=== PATIENT | male | born 1950 | race Caucasian/White ===

== ENCOUNTER 2016-07-16 10:20 | Inpatient (IN) ==
[2016-07-16] MEDS ORDERED: Ipratropium/Albuterol Neb 3 ML IH ONE (10:30)
[2016-07-16] MEDS ORDERED: methylPREDNISolone 125 MG/2 ML VIAL IVP ONE (10:30)
--- NOTE | 2016-07-16 10:41 | Emergency Department Note ---
Disposition Clinical Impression: Pneumonia Disposition: Admitted As Inpatient Condition: Fair SOB HPI - General Chief Complaint: ED Shortness of Breath/Dyspnea Stated Complaint: JESSCIA/Pneumonia Time Seen by Provider: 07/16/16 10:24 Source: patient, EMS Limitations: no limitations Nursing Notes Reviewed: Yes Vital Signs Reviewed: Yes - Related Data Home Medications Medication Instructions Recorded Confirmed Albuterol Neb [Proventil Neb] 2.5 mg IH QID 02/20/15 07/16/16 Aspirin Enteric Coated [Aspirin EC] 81 mg PO DAILY 02/20/15 07/16/16 Atorvastatin Calcium [Lipitor] 20 mg PO DAILY 02/20/15 07/16/16 Diltiazem HCl [Cardizem] 120 mg PO DAILY 02/20/15 07/16/16 Escitalopram [Lexapro] 20 mg PO DAILY 02/20/15 07/16/16 Furosemide [Lasix] 40 mg PO DAILY 02/20/15 07/16/16 Nitroglycerin 0.4 mg SL PRN PRN 02/20/15 07/16/16 Oxygen 3 l NS CONT 02/20/15 07/16/16 Potassium Chloride 20 meq PO BID 02/20/15 07/16/16 Tiotropium [Spiriva] 18 mcg IH DAILY 02/20/15 07/16/16 Ascorbic Acid [Vitamin C] 2,000 mg PO DAILY 03/31/16 07/16/16 Echinacea 250 mg PO 5XW 03/31/16 07/16/16 Multivitamin [Multi-Day Vitamins] 1 tab PO DAILY 06/17/16 07/16/16 Acetaminophen [Acetaminophen ER] 650 mg PO QID PRN 07/13/16 07/16/16 Ondansetron HCl [Zofran] 4 mg PO Q4H PRN 07/13/16 07/16/16 Budesonide/Formoterol 160/4.5 2 puff IH BID 07/16/16 07/16/16 [Symbicort 160/4.5] GuaiFENesin Liq [Robitussin Liq] 200 mg PO DAILY 07/16/16 07/16/16 Ipratropium/Albuterol Neb [Duoneb] 3 ml IH Q6HR 07/16/16 07/16/16 Lactose-Reduced Food [Ensure 1 bottle PO TID 07/16/16 07/16/16 Original] Allergies Allergy/AdvReac Type Severity Reaction Status Date / Time cisplatin AdvReac Severe neurological Verified 03/31/16 13:41 changes Past Medical History - Past Medical History Medical history: Reports: cancer, COPD, coronary artery disease, hyperlipidemia , hypertension Surgical history: Reports: herniorrhaphy Psychiatric history: Reports: depression - Social History Smoking Status: Former smoker Smokeless Tobacco Status: No Alcohol use: Reports: none Drug use: Reports: none Physical Exam - General Limitations: no limitations General appearance: alert, in no apparent distress Course Vital Signs Temperature 98.7 F 07/16/16 10:23 Pulse Rate 95 07/16/16 10:23 Respiratory Rate 22 07/16/16 10:23 Blood Pressure 142/121 07/16/16 10:23 O2 Sat by Pulse Oximetry 93 L 07/16/16 10:23 Temperature 98.8 F 07/16/16 15:17 Pulse Rate 87 07/16/16 15:17 Respiratory Rate 22 07/16/16 15:17 Blood Pressure 104/74 07/16/16 15:17 O2 Sat by Pulse Oximetry 93 L 07/16/16 15:17 Oxygen Delivery Oxygen Delivery Nasal Cannula Shortness of Breath/Dyspnea - [facility] Narrative Medical decision making narrative: I examined this patient and my medical decision-making was reviewed with the UTILITY DIVISION PROJECT MANAGER/PA/Advanced Practice Nurse/Resident Physician. I agree with the documented findings, disposition and treatment plan as described except to the extent set forth below. Patient presents today from nursing facility. He was admitted earlier this month with pneumonia. Apparently has been on 2 rounds of antibiotics last being Primaxin and Levaquin and apparently pneumonia is not getting better. Also history lung cancer and COPD. He has been on BiPAP in the past but said he does not want that. He has a PICC line in his left arm. He has some redness on the anterior portion but this looks like more of an adhesive reaction and it is a cellulitis. Denying any chest pain he is conversationally dyspneic to about 2 words. And start him a neb treatments check chest x-ray lab work and then we will reassess. He is in agreement with this plan. 1220 hrs.: Patient's chest x-ray looks worse than before however his white count is normal he also does not have a fever here. He is currently on Levaquin and Primaxin. Urinalysis peak with infectious disease about him that there is no one on-call for them. He seen pulmonology in the past for talk to pulmonology about him and determine a better course. He probably needs admission. Will discuss this with pulmonology and hospitalist. Chest X-Ray 07/16/16 10:24 IMPRESSION: Worsening left mid and lower lung airspace opacities in keeping with worsening pneumonia. Small left pleural effusion. Follow-up imaging to ensure resolution recommended. Moderate to severe emphysema. D/ / Heraclio Fierro MD / Heraclio Fierro MD Interpreting Provider: Heraclio Fierro MD - Lab Data Result diagrams: 07/16/16 10:37 07/16/16 10:37 Lab Results 07/16/16 07/16/16 07/16/16 Range/Units 10:37 10:37 10:37 WBC 8.4 (4.3-11.1) K/mcL RBC 3.68 L (4.19-5.50) M/mcL Hgb 11.5 L (12.9-16.9) g/dL Hct 36.0 L (37.5-50.1) % MCV 97.8 (83.0-100.0) fL MCH 31.3 (28.0-33.3) pg MCHC 31.9 (31.6-35.5) g/dL RDW 14.0 (11.5-14.5) % Plt Count 256 (140-400) K/mcL MPV 9.4 (9.4-12.4) fL Immature Gran % 0.6 (0-4) % Seg Neutrophils % 76.4 % Lymphocytes % 7.0 % Monocytes % 9.1 % Eosinophils % 6.4 % Basophils % 0.5 % Neutrophils # 6.4 (1.6-8.9) K/mcL Lymphocytes # 0.6 (0.6-4.6) K/mcL Monocytes # 0.8 (0.0-1.3) K/mcL Eosinophils # 0.5 (0.0-0.6) K/mcL Basophils # 0.0 (0.0-0.2) K/mcL Sodium 139 (136-145) mEq/L Potassium 4.1 (3.5-4.5) mEq/L Chloride 101 (98-109) mEq/L Carbon Dioxide 32 H (19-29) mEq/L BUN 17 (8-26) mg/dL Creatinine 0.63 L (0.72-1.25) mg/dL Est GFR ( Amer) > 60 (> 60) Est GFR (Non-Af Amer) > 60 (> 60) BUN/Creatinine Ratio 27 H (6-26) Glucose 140 H (70-99) mg/dL Calculated Osmolality 292 (280-300) Calcium 9.0 (8.6-10.8) mg/dL Troponin I 0.01 (0-0.03) ng/mL B-Natriuretic Peptide (0-100) pg/mL 07/16/16 Range/Units 10:37 WBC (4.3-11.1) K/mcL RBC (4.19-5.50) M/mcL Hgb (12.9-16.9) g/dL Hct (37.5-50.1) % MCV (83.0-100.0) fL MCH (28.0-33.3) pg MCHC (31.6-35.5) g/dL RDW (11.5-14.5) % Plt Count (140-400) K/mcL MPV (9.4-12.4) fL Immature Gran % (0-4) % Seg Neutrophils % % Lymphocytes % % Monocytes % % Eosinophils % % Basophils % % Neutrophils # (1.6-8.9) K/mcL Lymphocytes # (0.6-4.6) K/mcL Monocytes # (0.0-1.3) K/mcL Eosinophils # (0.0-0.6) K/mcL Basophils # (0.0-0.2) K/mcL Sodium (136-145) mEq/L Potassium (3.5-4.5) mEq/L Chloride (98-109) mEq/L Carbon Dioxide (19-29) mEq/L BUN (8-26) mg/dL Creatinine (0.72-1.25) mg/dL Est GFR ( Amer) (> 60) Est GFR (Non-Af Amer) (> 60) BUN/Creatinine Ratio (6-26) Glucose (70-99) mg/dL Calculated Osmolality (280-300) Calcium (8.6-10.8) mg/dL Troponin I (0-0.03) ng/mL B-Natriuretic Peptide 18 (0-100) pg/mL
[2016-07-16 11:07] LABS: BUN/Creatinine Ratio 27 (6-26); Blood Urea Nitrogen 17 mg/dL (8-26); Carbon Dioxide 32 mEq/L (19-29); Chloride 101 mEq/L (98-109); Glucose 140 mg/dL (70-99); Osmolality,Calculated 292 (280-300); Potassium 4.1 mEq/L (3.5-4.5); Sodium 139 mEq/L (136-145); eGFR For African Americans > 60 (> 60); eGFR For Non-African Americans > 60 (> 60)
[2016-07-16 11:16] LABS: Basophils % 0.5 %; Eosinophils # 0.5 K/mcL (0.0-0.6); Eosinophils % 6.4 %; Hemoglobin 11.5 g/dL (12.9-16.9); Immature Granulocytes % 0.6 % (0-4); Lymphocytes # 0.6 K/mcL (0.6-4.6); Mean Corpuscular HGB Conc 31.9 g/dL (31.6-35.5); Mean Corpuscular Hemoglobin 31.3 pg (28.0-33.3); Mean Corpuscular Volume 97.8 fL (83.0-100.0); Mean Platelet Volume 9.4 fL (9.4-12.4); Monocytes # 0.8 K/mcL (0.0-1.3); Monocytes % 9.1 %; Neutrophils # 6.4 K/mcL (1.6-8.9); Platelet Count 256 K/mcL (140-400); Red Blood Count 3.68 M/mcL (4.19-5.50); Segmented Neutrophils % 76.4 %
--- NOTE | 2016-07-16 12:27 | Emergency Department Note ---
Disposition Clinical Impression: Pneumonia Qualifiers: Pneumonia type: due to unspecified organism Laterality: left Lung location: unspecified part of lung Qualified Code(s): J18.9 - Pneumonia, unspecified organism Disposition: Admitted As Inpatient Condition: Fair Referrals: Jarrett Macdonald DO [Primary Care Provider] - Forms: ED Satisfaction Letter SOB HPI - General Chief Complaint: ED Shortness of Breath/Dyspnea Stated Complaint: JESSICA/Pneumonia Time Seen by Provider: 07/16/16 10:24 Source: patient, EMS Limitations: no limitations Nursing Notes Reviewed: Yes Vital Signs Reviewed: Yes - History of Present Illness Patient with past medical history of small cell lung cancer and COPD who is sent from [facility] for evaluation of worsening pneumonia. Patient was seen in early June and diagnosed with COPD exacerbation and pneumonia. Patient has been admitted [facility] and has been followed closely. Patient was recently placed on Levaquin for pneumonia. Antibiotic coverage was broadened to Primaxin on the . Chest x-ray today shows worsening pneumonia which prompted transfer. Patient's symptoms today state similar to yesterday with no acute change. Patient however does remain significantly weak and is unable to participate in this cold therapy. Patient states he is constantly felt short of breath since the onset of his symptoms. Patient normally on 2 L of oxygen and requiring 5 L at this time. - Related Data Home Medications Medication Instructions Recorded Confirmed Albuterol Neb [Proventil Neb] 2.5 mg IH QID 02/20/15 07/13/16 Aspirin Enteric Coated [Aspirin EC] 81 mg PO DAILY 02/20/15 07/13/16 Atorvastatin Calcium [Lipitor] 20 mg PO DAILY 02/20/15 07/13/16 Budesonide/Formoterol Fumarate 10.2 gm IH BID 02/20/15 07/13/16 [Symbicort 80-4.5 Mcg Inhaler] Diltiazem HCl [Cardizem] 120 mg PO DAILY 02/20/15 07/13/16 Escitalopram [Lexapro] 20 mg PO DAILY 02/20/15 07/13/16 Furosemide [Lasix] 40 mg PO DAILY 02/20/15 07/13/16 Nitroglycerin 0.4 mg SL PRN PRN 02/20/15 07/13/16 Oxygen 3 l NS CONT 02/20/15 06/17/16 Potassium Chloride 20 meq PO BID 02/20/15 07/13/16 Tiotropium [Spiriva] 1 puff IH DAILY 02/20/15 07/13/16 Ascorbic Acid [Vitamin C] 2,000 mg PO DAILY 03/31/16 07/13/16 Echinacea 250 mg PO 5XW 03/31/16 07/13/16 Ipratropium/Albuterol Sulfate 4 gm IH AD PRN 03/31/16 07/13/16 [Combivent Respimat Inhal [place]] Multivitamin [Multi-Day Vitamins] 1 tab PO DAILY 06/17/16 07/13/16 Acetaminophen [Acetaminophen ER] 650 mg PO QID PRN 07/13/16 07/13/16 Imipenem/Cilastatin Sodium 500 mg IV Q6H 07/13/16 07/13/16 [Primaxin 500 mg Vial] Ondansetron HCl [Zofran] 4 mg PO Q4H PRN 07/13/16 07/13/16 Previous Rx's Medication Instructions Recorded GuaiFENesin Liq [Robitussin Liq] 200 mg PO Q6HR #250 udc 06/21/16 Levofloxacin 750 mg PO DAILY #10 tablet 06/21/16 Allergies Allergy/AdvReac Type Severity Reaction Status Date / Time cisplatin AdvReac Severe neurological Verified 03/31/16 13:41 changes Constitutional: Reports: chills, weakness. Denies: fever Eyes: Denies: eye pain ENT ED: Denies: ear pain Cardiovascular: Denies: chest pain Respiratory: Reports: cough, dyspnea, wheezes Gastrointestinal: Denies: abdominal pain, nausea, vomiting Genitourinary: Denies: urgency, dysuria Musculoskeletal: Denies: back pain Integumentary: Denies: rash, abrasion, lesions Neurological: Denies: headache, weakness Psychiatric: Denies: anxiety, depression Endocrine: Denies: fatigue Past Medical History - Past Medical History Medical history: Reports: cancer, COPD, coronary artery disease, hyperlipidemia , hypertension Surgical history: Reports: herniorrhaphy Psychiatric history: Reports: depression - Social History Smoking Status: Former smoker Smokeless Tobacco Status: No Alcohol use: Reports: none Drug use: Reports: none Physical Exam - General Limitations: no limitations General appearance: alert, in no apparent distress - Head Head exam: atraumatic, normocephalic - Eye Eye exam: Present: normal appearance - ENT ENT exam: normal exam, normal oropharynx - Neck Neck exam: Present: normal inspection, full ROM - Chest Chest inspection: Present: normal inspection, symmetric chest wall rise - Respiratory Respiratory exam: Present: wheezes (Significant wheezing bilaterally.) - Cardiovascular Cardiovascular exam: Present: regular rate, normal rhythm - Abdominal Exam Abdominal exam: Present: soft, Non-Tender - Extremities Exam Extremities exam: Present: other (PICC line placed. Patient has some upper extremity edema no current complication from PICC line.) - Back Exam Back exam: Present: normal inspection - Neurological Exam Neurological exam: Present: alert, oriented X3 - Psychiatric Psychiatric exam: Present: normal affect, normal mood - Skin Skin exam: Present: warm, dry Course - Reevaluation(s) Reevaluation #1: Patient continuing to do okay. Patient does not like BiPAP and is a poor candidate with all of his facial hair. - Consultations Consultation #1: Discussed with on-call pulmonology as infectious disease is not available at this time. They will see in consult and bronch if needed. Consultation #2: Discussed with Dr. Ortiz. Patient accepted for admission. Vital Signs Temperature 98.7 F 07/16/16 10:23 Pulse Rate 95 07/16/16 10:23 Respiratory Rate 22 07/16/16 10:23 Blood Pressure 142/121 07/16/16 10:23 O2 Sat by Pulse Oximetry 93 L 07/16/16 10:23 Temperature 98.7 F 07/16/16 10:23 Pulse Rate 103 07/16/16 11:15 Respiratory Rate 21 07/16/16 11:15 Blood Pressure 112/76 07/16/16 11:15 O2 Sat by Pulse Oximetry 94 L 07/16/16 11:15 Oxygen Delivery Oxygen Delivery Nasal Cannula Shortness of Breath/Dyspnea - Medical Records Medical records reviewed: Yes I reviewed the patient's medical records. - Lab Data Lab results reviewed: Yes I reviewed the patient's lab results. Result diagrams: 07/16/16 10:37 07/16/16 10:37 Lab Results 07/16/16 07/16/16 07/16/16 Range/Units 10:37 10:37 10:37 WBC 8.4 (4.3-11.1) K/mcL RBC 3.68 L (4.19-5.50) M/mcL Hgb 11.5 L (12.9-16.9) g/dL Hct 36.0 L (37.5-50.1) % MCV 97.8 (83.0-100.0) fL MCH 31.3 (28.0-33.3) pg MCHC 31.9 (31.6-35.5) g/dL RDW 14.0 (11.5-14.5) % Plt Count 256 (140-400) K/mcL MPV 9.4 (9.4-12.4) fL Immature Gran % 0.6 (0-4) % Seg Neutrophils % 76.4 % Lymphocytes % 7.0 % Monocytes % 9.1 % Eosinophils % 6.4 % Basophils % 0.5 % Neutrophils # 6.4 (1.6-8.9) K/mcL Lymphocytes # 0.6 (0.6-4.6) K/mcL Monocytes # 0.8 (0.0-1.3) K/mcL Eosinophils # 0.5 (0.0-0.6) K/mcL Basophils # 0.0 (0.0-0.2) K/mcL Sodium 139 (136-145) mEq/L Potassium 4.1 (3.5-4.5) mEq/L Chloride 101 (98-109) mEq/L Carbon Dioxide 32 H (19-29) mEq/L BUN 17 (8-26) mg/dL Creatinine 0.63 L (0.72-1.25) mg/dL Est GFR ( Amer) > 60 (> 60) Est GFR (Non-Af Amer) > 60 (> 60) BUN/Creatinine Ratio 27 H (6-26) Glucose 140 H (70-99) mg/dL Calculated Osmolality 292 (280-300) Calcium 9.0 (8.6-10.8) mg/dL Troponin I 0.01 (0-0.03) ng/mL B-Natriuretic Peptide (0-100) pg/mL 07/16/16 Range/Units 10:37 WBC (4.3-11.1) K/mcL RBC (4.19-5.50) M/mcL Hgb (12.9-16.9) g/dL Hct (37.5-50.1) % MCV (83.0-100.0) fL MCH (28.0-33.3) pg MCHC (31.6-35.5) g/dL RDW (11.5-14.5) % Plt Count (140-400) K/mcL MPV (9.4-12.4) fL Immature Gran % (0-4) % Seg Neutrophils % % Lymphocytes % % Monocytes % % Eosinophils % % Basophils % % Neutrophils # (1.6-8.9) K/mcL Lymphocytes # (0.6-4.6) K/mcL Monocytes # (0.0-1.3) K/mcL Eosinophils # (0.0-0.6) K/mcL Basophils # (0.0-0.2) K/mcL Sodium (136-145) mEq/L Potassium (3.5-4.5) mEq/L Chloride (98-109) mEq/L Carbon Dioxide (19-29) mEq/L BUN (8-26) mg/dL Creatinine (0.72-1.25) mg/dL Est GFR ( Amer) (> 60) Est GFR (Non-Af Amer) (> 60) BUN/Creatinine Ratio (6-26) Glucose (70-99) mg/dL Calculated Osmolality (280-300) Calcium (8.6-10.8) mg/dL Troponin I (0-0.03) ng/mL B-Natriuretic Peptide 18 (0-100) pg/mL - Radiology Data Radiology results reviewed: Yes I reviewed the patient's radiology results. - EKG Data EKG attestation: Yes I reviewed and interpreted this EKG. EKG results narrative: Patient has sinus rhythm with a ventricular rate of 96 bpm. NC interval 157. QRS 93. QTC 379. Patient has no ST elevations or depressions. No acute changes from previous EKG of 06/17/16.
[2016-07-16] MEDS ORDERED: Vancomycin 1,000 MG in D5% in Water 250 ML IV ONE (12:33)
[2016-07-16] MEDS ORDERED: Levofloxacin 750 MG/150 ML 750 MG/150 ML BAG IVPB ONE (12:34)
[2016-07-16] MEDS ORDERED: Piperacillin/Tazobactam 3.375 GM in D5% in Water (Mini-Bag+) 100 ML IVPB ONE (12:34)
[2016-07-16] MEDS ORDERED: Ondansetron 4 MG/2 ML VIAL IVP PRN (13:40)
[2016-07-16] MEDS ORDERED: Acetaminophen 325 MG TABLET PO PRN (13:40)
[2016-07-16] MEDS ORDERED: Naloxone 0.4 MG/ML INJ IVP PRN (13:40)
[2016-07-16] MEDS ORDERED: *HR* HYDROcodone/Acet 5/325 mg TABLET PO PRN (13:40)
[2016-07-16] MEDS ORDERED: Sennosides/Docusate Sodium TABLET PO PRN (13:51)
[2016-07-16] MEDS ORDERED: Ipratropium/Albuterol Neb 3 ML IH PRN (13:51)
[2016-07-16] MEDS ORDERED: Vancomycin (wt based) 1,000 MG VIAL IVPB SCH (14:00)
--- NOTE | 2016-07-16 14:28 | Internal Med History&Physical ---
<Balaji Ross - Last Filed: 07/16/16 14:20> Date of Encounter: 07/16/16 Time of Encounter: 11:30 Assessment and Plan (1) Healthcare-associated pneumonia Current visit: Yes Status: Acute Patient has been struggling but ammonia since 06/17/16, previously receiving Levaquin and then followed by Levaquin and imipenem. Repeat CT examination performed on 07/07/16 continued to demonstrate right middle lobe pneumonia despite antibiotic therapy. Patient presents with increased oxygen demand and chest x-ray that shows worsening pneumonia, despite Levaquin and imipenem use. We will consult pulmonology regarding concerns for worsening pneumonia despite antibiotic therapy Obtain noncontrast chest CT Levaquin, Zosyn, vancomycin Scheduled and when necessary DuoNeb's Continue home Symbicort Continue supplemental oxygen as needed, wean as tolerated (3 L home usage already) We will obtain sputum culture (2) Chronic respiratory failure Current visit: No Status: Chronic Patient on 3 L oxygen at home normally, recently has been requiring 6 L to maintain adequate oxygen saturation. Likely due to underlying COPD, lung cancer , and pneumonia. Supplemental oxygen as needed, wean as tolerated (3 L home O2) Plan as above Qualifiers: Respiratory failure complication: hypoxia Qualified Code(s): J96.11 - Chronic respiratory failure with hypoxia (3) COPD (chronic obstructive pulmonary disease) Current visit: Yes Status: Acute Patient likely has healthcare associated pneumonia, with small cell lung cancer. No wheezes heard on auscultation, but decreased air movement overall. Scheduled and when necessary DuoNeb's All add Solu-Medrol Levaquin, Zosyn, vancomycin Supplemental oxygen, 3 L home, as needed, wean as tolerated Qualifiers: COPD type: unspecified COPD Qualified Code(s): J44.9 - Chronic obstructive pulmonary disease, unspecified (4) Coronary artery disease Current visit: No Status: Chronic Stable Qualifiers: Coronary Disease-Associated Artery/Lesion type: [place] artery [place] vs. transplanted heart: [place] heart Associated angina: without angina Qualified Code(s): I25.10 - Atherosclerotic heart disease of [place] coronary artery without angina pectoris (5) Small cell lung cancer Current visit: No Status: Chronic Patient diagnosed with lung cancer by biopsy. Received 2 rounds chemotherapy earlier this year. On 3 L oxygen home normally Continue oxygen supplementation as needed, wean to home dose as tolerated Qualifiers: Laterality: left Qualified Code(s): C34.92 - Malignant neoplasm of unspecified part of left bronchus or lung (6) DVT prophylaxis Current visit: Yes Status: Acute 5000 units heparin subcutaneous twice a day Internal Medicine - H&P: HPI Chief complaint: Increasing shortness of breath Admitted From: Long-term Nursing Facility Plans for Post Hospital Care: Transfer Half-Way Care History of present illness: Mr. Beal is a 66 year old male with medical history of small cell lung cancer, COPD, coronary disease, hypertension, and hyperlipidemia presents to [facility] from a subacute facility with concerns of worsening shortness of breath. He was diagnosed with small cell lung cancer earlier this year and has received 2 rounds of chemotherapy radiation. He was diagnosed with community acquired pneumonia on 06/17/16 and has been receiving treatment for this at [facility]. He had been discharged on 06/21/16 with a prescription for Levaquin. He has not improved and on 07/07/[address] examination that showed worsening pneumonia. He will be receiving Levaquin and imipenem at [facility], [place], but has continued not having improvement and was found to have greater oxygen need at [facility] and was sent to the hospital. He normally uses 3 L oxygen, but has been requiring 6 L in order to maintain adequate oxygen saturation. He reports that since being diagnosed with pneumonia and he has had increased shortness of breath that he states has been getting worse, though he does not state that is much worse today even though he has been using increased oxygen. He also reports since being diagnosed with pneumonia he has been continually coughing up orange sputum mass continue to do so, he denies hemoptysis. He reports subjective fever, diaphoresis with fever, and occasional lightheadedness. He denies chest pain, denies pain with inspiration , denies pain with coughing. Denies abdominal pain, denies nausea, denies vomiting. He states he has had no change in vision. Reports weakness. PCP: Dr. Jarrett Macdonald in [place] [employer] Dr. Delmy ANAYA: Mauratate Kemp (Moustapha) friend -- [phone] Past Med Surg Social Fam HX - Past Medical History Medical history: cancer, COPD, coronary artery disease, hyperlipidemia, hypertension Psychiatric history: depression - Past Surgical History Surgical History: herniorrhaphy - Social History Smoking Status: Former smoker Smokeless Tobacco Status: No Alcohol use: none Drug use: none - Family History Father Living Status: Internal Medicine - H&P: Meds Albuterol Neb [Proventil Neb] 2.5 mg IH QID 02/20/15 [History] Aspirin Enteric Coated [Aspirin EC] 81 mg PO DAILY 02/20/15 [History] Atorvastatin Calcium [Lipitor] 20 mg PO DAILY 02/20/15 [History] Diltiazem HCl [Cardizem] 120 mg PO DAILY 02/20/15 [History] Escitalopram [Lexapro] 20 mg PO DAILY 02/20/15 [History] Furosemide [Lasix] 40 mg PO DAILY 02/20/15 [History] Nitroglycerin 0.4 mg SL PRN PRN 02/20/15 [History] Oxygen 3 l NS CONT 02/20/15 [History] Potassium Chloride 20 meq PO BID 02/20/15 [History] Tiotropium [Spiriva] 18 mcg IH DAILY 02/20/15 [History] Ascorbic Acid [Vitamin C] 2,000 mg PO DAILY 03/31/16 [History] Echinacea 250 mg PO 5XW 03/31/16 [History] Multivitamin [Multi-Day Vitamins] 1 tab PO DAILY 06/17/16 [History] Acetaminophen [Acetaminophen ER] 650 mg PO QID PRN 07/13/16 [History] Ondansetron HCl [Zofran] 4 mg PO Q4H PRN 07/13/16 [History] Budesonide/Formoterol 160/4.5 [Symbicort 160/4.5] 2 puff IH BID 07/16/16 [ History] GuaiFENesin Liq [Robitussin Liq] 200 mg PO DAILY 07/16/16 [History] Ipratropium/Albuterol Neb [Duoneb] 3 ml IH Q6HR 07/16/16 [History] Lactose-Reduced Food [Ensure Original] 1 bottle PO TID 07/16/16 [History] Allergies cisplatin Adverse Reaction (Severe, Verified 03/31/16 13:41) neurological changes All Systems PM: A 10-system review of systems was performed and is negative for pertinent findings except as documented above in the HPI. - Constitutional Vitals: Temp Pulse Resp BP Pulse Ox 98.7 F 90 20 107/63 93 L 07/16/16 10:23 07/16/16 13:36 07/16/16 13:36 07/16/16 13:36 07/16/16 13:36 General appearance: Present: cooperative, A&O X 3, pleasant, no acute distress, answers questions appropriately - Head Head exam: Present: atraumatic, normocephalic - Eye Eye exam: Present: EOMI, PERRL, conjuntiva pink, sclera anicteric Pupils: Present: PERRL - ENT ENT exam: Present: mucous membranes moist - Neck Neck exam general surgery: Present: supple, trachea midline. Absent: lymphadenopathy, tenderness, nuchal rigidity - Respiratory Respiratory exam: Present: decreased breath sounds, rales (Left lower lobe). Absent: accessory muscle use, CTAB, rhonchi, wheezes - Cardiovascular Cardiovascular exam: Present: RRR, +S1, +S2. Absent: diastolic murmur, gallop, rubs, systolic murmur - GI/Abdominal GI/Abdominal exam: Present: normal bowel sounds, soft, no peritoneal signs. Absent: distended, tenderness - Extremities Exam Extremities exam: Present: warm, radial pulses palpable and symetrical. Absent : calf tenderness, cyanotic, pedal edema - Neurological Exam Neurological exam: Present: alert, oriented X3, no focal deficits. Absent: facial droop, speech deficit - Skin Skin exam: Present: dry, intact Internal Med - H&P Results - Labs CBC & Chem 7: 07/16/16 10:37 07/16/16 10:37 <Elias Ortiz - Last Filed: 07/16/16 18:28> Date of Encounter: 07/16/16 Internal Medicine - H&P: HPI History of present illness: Mr. Beal is a 66 year old male All Systems PM: A 10-system review of systems was performed and is negative for pertinent findings except as documented above in the HPI. - Constitutional Vitals: Temp Pulse Resp BP Pulse Ox 98.8 F 87 18 104/74 93 L 07/16/16 15:17 07/16/16 15:17 07/16/16 16:16 07/16/16 15:17 07/16/16 16:18 Internal Med - H&P Results - Labs CBC & Chem 7: 07/16/16 10:37 07/16/16 10:37 - Impressions ITS Impressions Chest CT 07/16/16 13:49 IMPRESSION: Increasing left upper lobe consolidation, compatible with worsening pneumonia as compared to prior exam dated 07/07/2016. Increasing adenopathy is seen at the AP window was well, likely reactive. Follow-up to resolution is recommended. Persistent small left pleural effusion. No significant interval change in 6 mm left lower lobe pulmonary nodule as compared to prior. D/ / Kalia Alvarez MD / Kalia Alvarez MD Interpreting Provider: Kalia Alvarez MD - Attending Attestation I have seen and examined this patient independently. I have discussed the case with the resident, Dr. Ross. I agree with the data gathering in the HPI, physical examination findings, assessment and plan as documented by the resident. HCAP in setting of patient with COPD and underlying malignancy. Pulmonary evaluation for further recommendations. The plan of care was discussed in detail with the patient, he expressed understanding.
[2016-07-16] MEDS ORDERED: Vancomycin 1,250 MG in D5% in Water 250 ML IVPB SCH (15:00)
[2016-07-16] MEDS: Ipratropium/Albuterol Neb 3 ML IH SCH ×3 (16:16→23:01)
[2016-07-16] MEDS: methylPREDNISolone 125 MG/2 ML VIAL IVP SCH (16:18)
[2016-07-16] MEDS: Piperacillin/Tazobactam 3.375 GM in D5% in Water (Mini-Bag+) 100 ML IVPB SCH (16:19)
[2016-07-16] MEDS: *HR* Heparin 5,000 UNIT/ML VIAL SQ SCH (17:27)
[2016-07-16] MEDS: Budesonide/Formoterol 160/4.5 MDI IH SCH (19:16)
[2016-07-17] MEDS: methylPREDNISolone 125 MG/2 ML VIAL IVP SCH ×3 (01:43→17:04)
[2016-07-17] MEDS: Vancomycin 1,250 MG in D5% in Water 250 ML IVPB SCH ×2 (01:43→16:54)
[2016-07-17] MEDS: Piperacillin/Tazobactam 3.375 GM in D5% in Water (Mini-Bag+) 100 ML IVPB SCH ×3 (03:21→18:57)
[2016-07-17] MEDS: Ipratropium/Albuterol Neb 3 ML IH SCH ×6 (03:24→23:59)
[2016-07-17 06:16] LABS: Basophils % 0.1 %; Hematocrit 32.7 % (37.5-50.1); Hemoglobin 10.7 g/dL (12.9-16.9); Immature Granulocytes % 0.4 % (0-4); Lymphocytes # 0.3 K/mcL (0.6-4.6); Lymphocytes % 2.4 %; Mean Corpuscular HGB Conc 32.7 g/dL (31.6-35.5); Mean Corpuscular Volume 94.8 fL (83.0-100.0); Mean Platelet Volume 9.5 fL (9.4-12.4); Monocytes # 0.2 K/mcL (0.0-1.3); Monocytes % 2.2 %; Neutrophils # 9.8 K/mcL (1.6-8.9); Platelet Count 281 K/mcL (140-400); Red Blood Count 3.45 M/mcL (4.19-5.50); Red Cell Distribution Width 13.4 % (11.5-14.5); Segmented Neutrophils % 94.9 %
[2016-07-17 06:24] LABS: INR 1.4; Prothrombin Time 14.8 Seconds (9.4-12.1)
[2016-07-17 06:27] LABS: Activated Partial Thrombo Time 34.9 Seconds (26.0-36.0)
[2016-07-17 06:30] LABS: BUN/Creatinine Ratio 26 (6-26); Blood Urea Nitrogen 18 mg/dL (8-26); Calcium 8.9 mg/dL (8.6-10.8); Carbon Dioxide 33 mEq/L (19-29); Chloride 97 mEq/L (98-109); Glucose 303 mg/dL (70-99); Magnesium 2.1 mg/dL (1.6-2.6); Osmolality,Calculated 295 (280-300); Phosphorous 2.4 mg/dL (2.3-4.7); Potassium 3.8 mEq/L (3.5-4.5); Sodium 136 mEq/L (136-145); eGFR For African Americans > 60 (> 60); eGFR For Non-African Americans > 60 (> 60)
--- NOTE | 2016-07-17 06:39 | Pulmonology Consult Note ---
Date of Encounter: 07/17/16 Time of Encounter: 06:39 Assessment and Plan (1) Acute and chronic respiratory failure with hypoxia Current Visit: Yes Status: Acute This is multifactorial including severe underlying COPD with acute infiltrate noted on CT imaging. Review of his imaging shows a diffuse progressive consolidative process primary in the lingula but with extension to the adjacent sections of the left upper lobe and superior segment of the left lower lobe. The differential here is multidrug resistant organism (or much less likely fungal) versus organizing pneumonia versus recurrence of lung cancer thought to be less likely doubt this represents any sort of radiation associated process given timing and chronicity. Please keep nothing by mouth at midnight for bronchoscopy BAL possible brushings possible transbronchial biopsy Continue to wean FiO2 to keep washing saturations greater than 89% to 92% Encourage incentive spirometry out of bed to chair and early ambulation as tolerated with underlying deconditioned state A bronchoscopy is recommended. The procedure , risks, benefits, complications, and expected outcomes have been reviewed. Benefits of diagnosis, as well as risks to include bleeding, infection, pneumothorax which may require surgical intervention, and in a small population. The patient is aware that sometimes test is nondiagnostic. Discussed with patient and agrees to proceed. (2) COPD (chronic obstructive pulmonary disease) Current Visit: Yes Status: Acute Agree with continued bronchodilator regimen and steroids. Dose of steroids is quite high unless diagnosis of organizing pneumonia is made I would recommend de -escalating these down to 40 mg of IV Solu-Medrol every 6 hours Qualifiers: COPD type: unspecified COPD Qualified Code(s): J44.9 - Chronic obstructive pulmonary disease, unspecified (3) Healthcare-associated pneumonia Current Visit: Yes Status: Acute Progressive infiltrate as outlined above. Agree with covering for healthcare associated organisms including Pseudomonas and MRSA as you are doing doubt that addition of Levaquin at this time would be very useful given he has had several courses. Agree with sputum culture respiratory infectious panel and blood cultures. (4) DVT prophylaxis Current Visit: Yes Status: Acute Agree with chemical DVT prophylaxis while inpatient (5) Small cell lung cancer Current Visit: No Status: Chronic Currently in remission opacification of the left lung possibly could represent malignancy although felt less likely continue to follow up with oncology Qualifiers: Laterality: left Qualified Code(s): C34.92 - Malignant neoplasm of unspecified part of left bronchus or lung (6) Swelling of upper arm Current Visit: Yes Status: Acute Recommend left upper extremity duplex if not performed already for asymmetric swelling and went through his record I do not see at first glance of this is been done. History of Present Illness Consult date: 07/17/16 Requesting physician: Elias Ortiz Reason for consult: pneumonia Chief complaint: Dyspnea History of present illness: Mr Beal is a very pleasant 66-year-old gentleman with a history of advanced COPD oxygen dependent at 3 L at all time and Small Cell lung cancer status post chemotherapy and XRT he is nearing his 5 year ronnie for remission. He presents with worsening dyspnea and shortness of breath and generalized fatigue from a nursing home facility where he has been convalescing after recent admissions for pneumonia. Symptoms began in early June and he has had multiple rounds of antibiotics for pneumonia despite disease had a progressive infiltrate that been noticed on repeat CT scans. Most recently he has been on levofloxacin and imipenem at the nursing home facility additionally he has had increased oxygen requirement from baseline 3 L to 5 L In speaking with him today he says that he has had a cough occasionally productive of "orange" sputum denies hemoptysis no significant weight loss he has had a persistent lobe rate fever but no night sweats he has a history of tobacco abuse now in remission Past Med Surg Social Fam HX - Past Medical History Medical history: cancer, COPD, coronary artery disease, hyperlipidemia, hypertension Psychiatric history: depression - Past Surgical History Surgical History: herniorrhaphy - Social History Smoking Status: Former smoker Smokeless Tobacco Status: No Alcohol use: none Drug use: none - Family History Father Living Status: Hx Family Cardiac Disorders: Yes Medications and Allergies Albuterol Neb [Proventil Neb] 2.5 mg IH QID 02/20/15 [History] Aspirin Enteric Coated [Aspirin EC] 81 mg PO DAILY 02/20/15 [History] Atorvastatin Calcium [Lipitor] 20 mg PO DAILY 02/20/15 [History] Diltiazem HCl [Cardizem] 120 mg PO DAILY 02/20/15 [History] Escitalopram [Lexapro] 20 mg PO DAILY 02/20/15 [History] Furosemide [Lasix] 40 mg PO DAILY 02/20/15 [History] Nitroglycerin 0.4 mg SL PRN PRN 02/20/15 [History] Oxygen 3 l NS CONT 02/20/15 [History] Potassium Chloride 20 meq PO BID 02/20/15 [History] Tiotropium [Spiriva] 18 mcg IH DAILY 02/20/15 [History] Ascorbic Acid [Vitamin C] 2,000 mg PO DAILY 03/31/16 [History] Echinacea 250 mg PO 5XW 03/31/16 [History] Multivitamin [Multi-Day Vitamins] 1 tab PO DAILY 06/17/16 [History] Acetaminophen [Acetaminophen ER] 650 mg PO QID PRN 07/13/16 [History] Ondansetron HCl [Zofran] 4 mg PO Q4H PRN 07/13/16 [History] Budesonide/Formoterol 160/4.5 [Symbicort 160/4.5] 2 puff IH BID 07/16/16 [ History] GuaiFENesin Liq [Robitussin Liq] 200 mg PO DAILY 07/16/16 [History] Ipratropium/Albuterol Neb [Duoneb] 3 ml IH Q6HR 07/16/16 [History] Lactose-Reduced Food [Ensure Original] 1 bottle PO TID 07/16/16 [History] Allergies cisplatin Adverse Reaction (Severe, Verified 03/31/16 13:41) neurological changes All Systems: A 10-system review of systems was performed and is negative for pertinent findings except as documented above in the HPI. Physical Examination Vital Signs: Vital Signs, Last 4 Hours Temp Pulse Resp BP Pulse Ox 07/17/16 03:59 98 F 86 22 112/75 93 L 07/17/16 03:24 18 125/82 92 L General appearance: no acute distress Neck: supple, no lymphadenopathy Effort: mildly labored, other (Able to speak to me in full sentences but clearly short of breath) Auscultation: bilateral: diminished breath sounds, wheezes (No obvious wheezing) Cardiovascular: regular rate and rhythm Gastrointestinal: normoactive bowel sounds, non-tender Integumentary: other (Left arm noticed to be more edematous than right per patient does admit this a chronic issue) Extremities: edema Musculoskeletal: no deformities normal mental status, non-focal exam mood appropriate Results - Laboratory Findings CBC and BMP: 07/17/16 06:03 07/17/16 06:03 PT/INR, D-dimer PT 14.8 Seconds (9.4-12.1) H 07/17/16 06:03 Abnormal lab findings: Abnormal lab results RBC 3.45 M/mcL (4.19-5.50) L 07/17/16 06:03 Hgb 10.7 g/dL (12.9-16.9) L 07/17/16 06:03 Hct 32.7 % (37.5-50.1) L 07/17/16 06:03 Neutrophils # 9.8 K/mcL (1.6-8.9) H 07/17/16 06:03 Lymphocytes # 0.3 K/mcL (0.6-4.6) L 07/17/16 06:03 PT 14.8 Seconds (9.4-12.1) H 07/17/16 06:03 Chloride 97 mEq/L (98-109) L 07/17/16 06:03 Carbon Dioxide 33 mEq/L (19-29) H 07/17/16 06:03 Creatinine 0.68 mg/dL (0.72-1.25) L 07/17/16 06:03 Glucose 303 mg/dL (70-99) H 07/17/16 06:03 - Clinical Findings Intake & Output: Intake & Output 07/16/16 07/16/16 07/17/16 15:59 23:59 07:59 Intake Total 400 / 640 630 / 630 Output Total 400 / 600 150 / 150 Balance 0 / 40 480 / 480 Weight 71.577 kg Consult Discharge Plan - Plan Referrals: Jarrett Macdonald DO [Primary Care Provider] - (Web request sent on 07-16-2016)
[2016-07-17] MEDS: *HR* Heparin 5,000 UNIT/ML VIAL SQ SCH (06:43)
[2016-07-17] MEDS: Budesonide/Formoterol 160/4.5 MDI IH SCH ×2 (09:57→21:01)
[2016-07-17] MEDS: Aspirin Enteric Coated 81 MG Tablet PO SCH (09:57)
[2016-07-17] MEDS: Furosemide 40 MG TABLET PO SCH (09:57)
[2016-07-17] MEDS: Pantoprazole 40 MG VIAL IVP SCH (09:57)
[2016-07-17] MEDS: Diltiazem CD (24hr) 120 MG CAPSULE PO SCH (09:57)
[2016-07-17] MEDS: Levofloxacin 750 MG/150 ML 750 MG/150 ML BAG IVPB SCH (09:57)
--- NOTE | 2016-07-17 13:11 | Internal Med Progress Note ---
Date of Encounter: 07/17/16 Time of Encounter: 08:00 - Assessment and plan (1) Healthcare-associated pneumonia Current Visit: Yes Status: Acute Assessment and plan: Patient has persistent pneumonia. Etiology is undetermined. Pulmonology is on case and the plan for bronchoscope tomorrow. We will continue antibiotic treatment. Follow-up Sputum culture Patient is at high risk because he is on vancomycin, which needs close monitoring (2) Acute and chronic respiratory failure with hypoxia Current Visit: Yes Status: Acute Assessment and plan: Patient is in no acute respiratory distress now. We will continue antibiotic, steroid, and the bronchodilator. Oxygen therapy. Continuous oximetry monitoring. (3) COPD (chronic obstructive pulmonary disease) Current Visit: Yes Status: Acute Assessment and plan: Patient has a history of COPD with now pneumonia. On antibiotic, steroid, and bronchodilator treatments Qualifiers: COPD type: unspecified COPD Qualified Code(s): J44.9 - Chronic obstructive pulmonary disease, unspecified (4) DVT prophylaxis Current Visit: Yes Status: Acute Assessment and plan: Heparin subcutaneously (5) Swelling of upper arm Current Visit: Yes Status: Acute Assessment and plan: Patient has swelling of both arm without pain. Will order duplex to rule out DVT (6) Coronary artery disease Current Visit: No Status: Chronic Assessment and plan: Stable, continue home medication Qualifiers: Coronary Disease-Associated Artery/Lesion type: [place] artery [place] vs. transplanted heart: [place] heart Associated angina: without angina Qualified Code(s): I25.10 - Atherosclerotic heart disease of [place] coronary artery without angina pectoris (7) Hypertension Current Visit: No Status: Chronic Assessment and plan: Stable, continue home medication Qualifiers: Hypertension type: essential hypertension Qualified Code(s): I10 - Essential (primary) hypertension (8) Small cell lung cancer Current Visit: No Status: Chronic Qualifiers: Laterality: left Qualified Code(s): C34.92 - Malignant neoplasm of unspecified part of left bronchus or lung - Time Spent With Patient Greater than 35 minutes - Subjective Interval history: Patient is a 66-year-old male admitted for pneumonia. His past medical history is significant for small cell lung cancer S/P chemotherapy and radiation therapy , COPD, CAD, hyperlipidemia, and hypertension. Patient was seen and examined. He is awake alert, oriented 3. No fever. In no acute respiratory distress. Still has cough with sputum. Pulmonology consult appreciated. We will continue Terri Zosyn, and the Levaquin treatment. Plan for bronchoscope tomorrow morning. - Constitutional Vitals: Temp Pulse Resp BP Pulse Ox 97.9 F 104 18 118/69 93 L 07/17/16 10:58 07/17/16 10:58 07/17/16 10:58 07/17/16 10:58 07/17/16 10:58 General appearance: Present: cooperative, A&O X 3, pleasant, no acute distress, answers questions appropriately - Head Head exam: Present: atraumatic, normocephalic - Eye Eye exam: Present: PERRL, conjuntiva pink, sclera anicteric Pupils: Present: PERRL - Neck Neck exam general surgery: Present: supple, trachea midline. Absent: lymphadenopathy - Respiratory Respiratory exam: Present: CTAB, wheezes (Scattered wheezing bilaterally). Absent: accessory muscle use, rales, rhonchi - Cardiovascular Cardiovascular exam: Present: RRR, +S1, +S2. Absent: diastolic murmur, gallop, rubs, systolic murmur - GI/Abdominal GI/Abdominal exam: Present: normal bowel sounds, soft, no peritoneal signs. Absent: distended, tenderness - Extremities Exam Extremities exam: Present: warm, radial pulses palpable and symetrical. Absent : calf tenderness, cyanotic, pedal edema - Neurological Exam Neurological exam: Present: CN II-XII intact, oriented X3, no focal deficits. Absent: pronater drift, facial droop, speech deficit - Skin Skin exam: Present: dry, intact Internal Medicine: Result - Labs CBC & Chem 7: 07/17/16 06:03 07/17/16 06:03 Labs: Short CBC 07/17/16 Range/Units 06:03 WBC 10.3 (4.3-11.1) K/mcL Hgb 10.7 L (12.9-16.9) g/dL Hct 32.7 L (37.5-50.1) % Plt Count 281 (140-400) K/mcL Neutrophils # 9.8 H (1.6-8.9) K/mcL BMP 07/17/16 06:03 Sodium 136 Potassium 3.8 Chloride 97 L Carbon Dioxide 33 H BUN 18 Creatinine 0.68 L Glucose 303 H Calcium 8.9 - ABG Interpretation ABG results: PT/INR, D-dimer PT 14.8 Seconds (9.4-12.1) H 07/17/16 06:03 Consult Discharge Plan - Plan Referrals: Jarrett Macdonald DO [Primary Care Provider] - (Web request sent on 07-16-2016)
[2016-07-17] MEDS ORDERED: *HR* Heparin 5,000 UNIT/ML VIAL IVP PRN ×4 (15:54→16:40)
[2016-07-17] MEDS ORDERED: *HR* Heparin 5,000 UNIT/ML VIAL IVP ONE ×2 (15:54→16:40)
--- NOTE | 2016-07-17 15:57 | Event Note ---
Date of Encounter: 07/17/16 Time of Encounter: 15:00 Called by vascular US that pt has acute DVT on left arm (subclavain and brachial vein). Heparin drip started.
[2016-07-17] MEDS ORDERED: Heparin 25,000 UNIT/500 ML D5W 25,000 UNIT/500 ML MLS IVC SCH ×2 (16:00→16:13)
[2016-07-17] MEDS: Heparin 25,000 UNIT/500 ML D5W 25,000 UNIT/500 ML MLS IVC SCH (17:19)
[2016-07-17 17:31] LABS: INR 1.4; Prothrombin Time 15.2 Seconds (9.4-12.1)
[2016-07-17 17:34] LABS: Activated Partial Thrombo Time 33.6 Seconds (26.0-36.0)
[2016-07-17] MEDS ORDERED: *HR* Enoxaparin 80 MG/0.8 ML SYRINGE SQ SCH (18:00)
[2016-07-18] MEDS: Piperacillin/Tazobactam 3.375 GM in D5% in Water (Mini-Bag+) 100 ML IVPB SCH ×3 (00:33→16:10)
[2016-07-18] MEDS: methylPREDNISolone 125 MG/2 ML VIAL IVP SCH ×3 (00:34→16:05)
[2016-07-18 01:08] LABS: Basophils % 0.1 %; Hematocrit 31.8 % (37.5-50.1); Hemoglobin 10.7 g/dL (12.9-16.9); Immature Granulocytes % 0.6 % (0-4); Lymphocytes # 0.4 K/mcL (0.6-4.6); Lymphocytes % 2.2 %; Mean Corpuscular HGB Conc 33.6 g/dL (31.6-35.5); Mean Corpuscular Volume 95.2 fL (83.0-100.0); Mean Platelet Volume 9.3 fL (9.4-12.4); Monocytes # 0.7 K/mcL (0.0-1.3); Monocytes % 3.9 %; Platelet Count 344 K/mcL (140-400); Red Blood Count 3.34 M/mcL (4.19-5.50); Red Cell Distribution Width 13.5 % (11.5-14.5); Segmented Neutrophils % 93.2 %
[2016-07-18 01:09] LABS: Neutrophils # 17.2 K/mcL (1.6-8.9)
[2016-07-18 01:21] LABS: BUN/Creatinine Ratio 29 (6-26); Blood Urea Nitrogen 22 mg/dL (8-26); Carbon Dioxide 31 mEq/L (19-29); Chloride 97 mEq/L (98-109); Glucose 214 mg/dL (70-99); Osmolality,Calculated 292 (280-300); Potassium 4.3 mEq/L (3.5-4.5); Sodium 136 mEq/L (136-145); eGFR For African Americans > 60 (> 60); eGFR For Non-African Americans > 60 (> 60)
[2016-07-18] MEDS: Vancomycin 1,250 MG in D5% in Water 250 ML IVPB SCH (02:20)
[2016-07-18] MEDS: Ipratropium/Albuterol Neb 3 ML IH SCH ×2 (04:22→08:16)
--- NOTE | 2016-07-18 07:12 | Venous Imaging Report ---
UE Venous Duplex Patient Name:Otis Beal Order Number:[id number] Procedure Date:07/17/2016 Date:2Age:66 yrs Gender:Male Location:[facility] Room #: 2A14 Edge Molder:Yuliya Vilchis RVT, ALEXUS Referring MD:Carter Cruz MD respiratory assistant:DO Jovani Lockwood MD:Miko Pastrana MD Primary Indications:swelling r/o DVT Secondary Indications: Risk Factors Yes/No Hx of DVT No Impressions: Acute deep venous thrombosis is present in the left subclavian, axillary and brachial veins. Normal left upper extremity superficial venous exam. Normal contralateral common femoral vein. Recommendations: Test completed on 07/17/2016 at 3:49:10 pm. Critical findings reported to Dr. Cruz and Lizz LUCAS by phone at 3:49:23 pm on 07/17/2016 by Yuliya Vilchis RVT, RDCS. Findings Venous Duplex Results: Right: Venous imaging of the upper extremity reveals full patency and normal vessel compressibility of the right jugular, right subclavian, right axillary, right brachial, right cephalic, right basilic, right radial and right ulnar. Doppler signals in the evaluated veins were normal. Left: Venous imaging of the upper extremity reveals full patency and normal vessel compressibility of the left jugular, left cephalic, left basilic, left radial and left ulnar. Doppler signals in the evaluated veins were normal. There is an acute occlusive thrombus seen in the left subclavian. It demonstrates an incompressible vein. Flow was absent and it did not augment. There is an acute occlusive thrombus seen in the left axillary. It demonstrates an incompressible vein. Flow was absent and it did not augment. There is an acute occlusive thrombus seen in the left brachial. It demonstrates an incompressible vein. Flow was absent and it did not augment. Upper Extremity Venous Duplex Side Vein Compress Spontaneous Flow Augment Right Jugular Normal Yes Phasic Yes Right Subclavian Normal Yes Phasic Yes Right Axillary Normal Yes Phasic Yes Right Brachial Normal Yes Phasic Yes Right Cephalic Normal Yes Phasic Yes Right Basilic Normal Yes Phasic Yes Right Radial Normal Yes Phasic Yes Right Ulnar Normal Yes Phasic Yes Left Jugular Normal Yes Phasic Yes Left Subclavian None no Absent no Left Axillary None no Absent no Left Brachial None no Absent no Left Cephalic Normal Yes Phasic Yes Left Basilic Normal Yes Phasic Yes Left Radial Normal Yes Phasic Yes Left Ulnar Normal Yes Phasic Yes Updated by Miko Pastrana MD on 07/18/2016 7:06:50 AM electronically signed on 07/18/2016 7:08:11 AM with status of Final
[2016-07-18] MEDS: Budesonide/Formoterol 160/4.5 MDI IH SCH ×2 (08:16→21:05)
[2016-07-18] MEDS: Pantoprazole 40 MG VIAL IVP SCH (08:37)
[2016-07-18] MEDS: Levofloxacin 750 MG/150 ML 750 MG/150 ML BAG IVPB SCH (08:38)
[2016-07-18] MEDS: Furosemide 40 MG TABLET PO SCH (08:38)
[2016-07-18] MEDS: Aspirin Enteric Coated 81 MG Tablet PO SCH (08:38)
[2016-07-18] MEDS: Diltiazem CD (24hr) 120 MG CAPSULE PO SCH (08:38)
[2016-07-18] MEDS ORDERED: Albuterol 2.5 MG/3 ML NEBULIZER IH ONE (09:16)
[2016-07-18] MEDS ORDERED: *HR* FentaNYL (PF) 100 MCG/2 ML VIAL IVP PRN (09:16)
[2016-07-18] MEDS ORDERED: *HR* EPINEPHrine 1 MG/10 ML SYRINGE INTRATRACH PRN (09:16)
[2016-07-18] MEDS ORDERED: Tetracaine/Benzocaine/Butamben 200MG/SPRAY (100SPY/BOT) MM ONE (09:16)
[2016-07-18] MEDS ORDERED: Lidocaine Viscous Oral Soln 15 ML SOLUTION MM ONE (09:16)
--- NOTE | 2016-07-18 09:16 | Pre-Sedation Evaluation ---
Pre-sedation evaluation - Pre-sedation checklist Date of procedure: 07/18/16 Procedure: Bronchoscopy Recent Vitals: Last Vital Signs Temp 97.5 F L 07/18/16 07:26 Pulse 91 07/18/16 07:26 Resp 16 07/18/16 08:16 BP 157/110 07/18/16 07:26 Pulse Ox 97 07/18/16 08:16 H&P (including ROS) documented in medical record: Yes Previous reaction to sedatives/anesthetics: No Dietary Status: NPO after Midnight Possible difficult airway: No ASA Classification *see protocol: CLASS III-Severe systemic disease Plan of Care: Pt appropriate candidate for procedure/moderate/conscious sedation , Risks/benefits of procedure/sedation discussed w/ patient/family
[2016-07-18] MEDS ORDERED: Ringers Solution, Lactated 1,000 ML IVC SCH (09:30)
[2016-07-18] MEDS ORDERED: *HR* Midazolam HCl 5 MG/5 ML VIAL IVP ONE (10:15)
[2016-07-18] MEDS ORDERED: *HR* FentaNYL (PF) 100 MCG/2 ML VIAL ONE (10:15)
[2016-07-18] MEDS ORDERED: Lidocaine Viscous Oral Soln 15 ML SOLUTION ONE (10:15)
--- NOTE | 2016-07-18 10:25 | Electrocardiograph Report ---
[facility] Test Date: 2016-07-16 Pat Name: Otis Beal Department: 103 Room: 2A14 Gender: M Automatic Print Developer: BENOIT : 1950 Requested By: Chin Johnson Order Number: [id number] Reading MD: Dl Garcia MD Measurements Intervals [place] Rate: 96 P: 75 MA: 157 QRS: 107 QRSD: 93 T: 81 QT: 325 QTc: 379 Interpretive Statements SINUS RHYTHM MARKED RIGHT AXIS DEVIATION POOR R WAVE PROGRESSION Electronically Signed On 07-18-16 10:25:01 EST by Dl Garcia MD
[2016-07-18] MEDS: *HR* Midazolam HCl 5 MG/5 ML VIAL IVP PRN ×2 (10:45→10:51)
--- NOTE | 2016-07-18 12:31 | Internal Med Progress Note ---
Date of Encounter: 07/18/16 Time of Encounter: 09:00 - Assessment and plan (1) Healthcare-associated pneumonia Current Visit: Yes Status: Acute Assessment and plan: Patient has persistent pneumonia. Etiology is undetermined. Pulmonology is on case and had bronchoscope done. We will continue antibiotic treatment. Follow-up Sputum culture. Patient is at high risk because he is on vancomycin, which needs close monitoring (2) Acute and chronic respiratory failure with hypoxia Current Visit: Yes Status: Acute Assessment and plan: Patient is in no acute respiratory distress now. We will continue antibiotic, steroid, and the bronchodilator. Oxygen therapy. Continuous oximetry monitoring. (3) COPD (chronic obstructive pulmonary disease) Current Visit: Yes Status: Acute Assessment and plan: Patient has a history of COPD with now pneumonia. On antibiotic, steroid, and bronchodilator treatments Qualifiers: COPD type: unspecified COPD Qualified Code(s): J44.9 - Chronic obstructive pulmonary disease, unspecified (4) Swelling of upper arm Current Visit: Yes Status: Acute Assessment and plan: Patient has swelling of both arm without pain. Duplex shows left arm DVT. (5) Coronary artery disease Current Visit: No Status: Chronic Assessment and plan: Stable, continue home medication Qualifiers: Coronary Disease-Associated Artery/Lesion type: [place] artery [place] vs. transplanted heart: [place] heart Associated angina: without angina Qualified Code(s): I25.10 - Atherosclerotic heart disease of [place] coronary artery without angina pectoris (6) Hypertension Current Visit: No Status: Chronic Assessment and plan: Stable, continue home medication Qualifiers: Hypertension type: essential hypertension Qualified Code(s): I10 - Essential (primary) hypertension (7) Small cell lung cancer Current Visit: No Status: Chronic Assessment and plan: Patient had chemotherapy and radiation therapy 5 years ago. Qualifiers: Laterality: left Qualified Code(s): C34.92 - Malignant neoplasm of unspecified part of left bronchus or lung (8) DVT prophylaxis Current Visit: Yes Status: Acute Assessment and plan: Patient is on heparin drip (9) DVT (deep venous thrombosis) Current Visit: Yes Status: Acute Assessment and plan: Duplex shows left arm DVT, patient was placed on heparin drip. Will switch to by mouth anticoagulation. DVT is possibly provoked by the midline, will remove the line. Patient is at high risk because he is on heparin drip, needed close monitoring. Qualifiers: DVT location: upper extremity Affected thrombotic vein of extremity: other upper extremity vein Laterality: left Chronicity: acute Qualified Code(s) : I82.622 - Acute embolism and thrombosis of deep veins of left upper extremity - Time Spent With Patient Greater than 35 minutes - Subjective Interval history: Patient is a 66-year-old male admitted for pneumonia. His past medical history is significant for small cell lung cancer S/P chemotherapy and radiation therapy , COPD, CAD, hyperlipidemia, and hypertension. Patient was seen and examined. He is awake alert, oriented 3. No fever. Mild cough. In no acute respiratory distress. Had bronchoscope today. We will continue Vanco, Zosyn, and the Levaquin treatment. He has left arm acute thrombosis. On heparin drip now. Plan to switch to by mouth anticoagulation. Social work consult to check if xarelto is covered by insurance. - Constitutional Vitals: Temp Pulse Resp BP Pulse Ox 97.6 F 99 16 100/65 92 L 07/18/16 11:27 07/18/16 11:27 07/18/16 11:27 07/18/16 11:27 07/18/16 11:27 General appearance: Present: cooperative, A&O X 3, pleasant, no acute distress, answers questions appropriately - Head Head exam: Present: atraumatic, normocephalic - Eye Eye exam: Present: PERRL, conjuntiva pink, sclera anicteric Pupils: Present: PERRL - Neck Neck exam general surgery: Present: supple, trachea midline. Absent: lymphadenopathy - Respiratory Respiratory exam: Present: CTAB, wheezes (Scattered wheezes bilaterally). Absent: accessory muscle use, rales, rhonchi - Cardiovascular Cardiovascular exam: Present: RRR, +S1, +S2. Absent: diastolic murmur, gallop, rubs, systolic murmur - GI/Abdominal GI/Abdominal exam: Present: normal bowel sounds, soft, no peritoneal signs. Absent: distended, tenderness - Extremities Exam Extremities exam: Present: warm, radial pulses palpable and symetrical. Absent : calf tenderness, cyanotic, pedal edema - Neurological Exam Neurological exam: Present: CN II-XII intact, oriented X3, no focal deficits. Absent: pronater drift, facial droop, speech deficit - Skin Skin exam: Present: dry, intact Internal Medicine: Result - Labs CBC & Chem 7: 07/18/16 00:56 07/18/16 00:56 Labs: Short CBC 07/18/16 Range/Units 00:56 WBC 18.5 H D (4.3-11.1) K/mcL Hgb 10.7 L (12.9-16.9) g/dL Hct 31.8 L (37.5-50.1) % Plt Count 344 (140-400) K/mcL Neutrophils # 17.2 H (1.6-8.9) K/mcL BMP 07/18/16 00:56 Sodium 136 Potassium 4.3 Chloride 97 L Carbon Dioxide 31 H BUN 22 Creatinine 0.76 Glucose 214 H Calcium 9.0 - ABG Interpretation ABG results: PT/INR, D-dimer PT 15.2 Seconds (9.4-12.1) H 07/17/16 17:15 Consult Discharge Plan - Plan Referrals: Jodi Leonard, [employer] [employer]PER[facility] [Advanced Practice Nurse] - 07/26/16 1:00 pm
[2016-07-18] MEDS ORDERED: 0.9 % Sodium Chloride 1,000 ML IVC SCH (15:00)
[2016-07-18] MEDS: Levalbuterol Neb 1.25 MG/3 ML IH SCH ×2 (15:35→21:05)
[2016-07-18] MEDS: Vancomycin 1,500 MG in D5% in Water 250 ML IVPB SCH (16:06)
[2016-07-18 18:09] LABS: Appearance of Body Fluid Cloudy (Clear); Volume of Body Fluid 12 mL
[2016-07-19] MEDS: methylPREDNISolone 125 MG/2 ML VIAL IVP SCH ×2 (00:28→08:56)
[2016-07-19] MEDS: Piperacillin/Tazobactam 3.375 GM in D5% in Water (Mini-Bag+) 100 ML IVPB SCH ×3 (00:28→15:52)
[2016-07-19] MEDS: Levalbuterol Neb 1.25 MG/3 ML IH SCH ×2 (03:18→10:31)
[2016-07-19] MEDS: Vancomycin 1,500 MG in D5% in Water 250 ML IVPB SCH ×2 (03:42→15:52)
--- NOTE | 2016-07-19 04:40 | Event Note ---
Date of Encounter: 07/19/16 Time of Encounter: 04:38 I was paged as the patient's right arm was found to have erythema and edema Pt. reports swelling of both hands Has a Midline in left arm Bilateral upper extremity edema present Right forearms demonstrates erythema with brusing at the iv site Will elevate the upper extremities Patient has normal renal function. Will switch from heparin drip to lovenox full dose. Will change protonix and levaquin to PO route Will defer to AM team regarding switching steroids and his other antibiotics to PO route BALAJI SilvaBS
[2016-07-19] MEDS ORDERED: *HR* Enoxaparin 80 MG/0.8 ML SYRINGE SQ SCH (06:00)
[2016-07-19] MEDS: Heparin 25,000 UNIT/500 ML D5W 25,000 UNIT/500 ML MLS IVC SCH (06:43)
[2016-07-19] MEDS: Vancomycin 1,250 MG in D5% in Water 250 ML IVPB SCH (06:43)
[2016-07-19 07:30] LABS: Basophils % 0.1 %; Hematocrit 31.8 % (37.5-50.1); Hemoglobin 10.5 g/dL (12.9-16.9); Immature Granulocytes % 1.5 % (0-4); Lymphocytes # 0.3 K/mcL (0.6-4.6); Lymphocytes % 2.6 %; Mean Corpuscular Hemoglobin 31.6 pg (28.0-33.3); Mean Corpuscular Volume 95.8 fL (83.0-100.0); Mean Platelet Volume 9.6 fL (9.4-12.4); Monocytes # 0.4 K/mcL (0.0-1.3); Monocytes % 3.4 %; Platelet Count 345 K/mcL (140-400); Red Blood Count 3.32 M/mcL (4.19-5.50); Red Cell Distribution Width 13.7 % (11.5-14.5); Segmented Neutrophils % 92.4 %
[2016-07-19 07:37] LABS: BUN/Creatinine Ratio 30 (6-26); Blood Urea Nitrogen 23 mg/dL (8-26); Calcium 8.8 mg/dL (8.6-10.8); Carbon Dioxide 29 mEq/L (19-29); Chloride 97 mEq/L (98-109); Glucose 213 mg/dL (70-99); Osmolality,Calculated 290 (280-300); Potassium 4.2 mEq/L (3.5-4.5); Sodium 135 mEq/L (136-145); eGFR For African Americans > 60 (> 60); eGFR For Non-African Americans > 60 (> 60)
[2016-07-19] MEDS ORDERED: Aminoglycoside Consult 1 EACH MC ONE (08:41)
[2016-07-19] MEDS: levoFLOXacin 750 MG TABLET PO SCH (08:56)
[2016-07-19] MEDS: Diltiazem CD (24hr) 120 MG CAPSULE PO SCH (08:57)
[2016-07-19] MEDS: Aspirin Enteric Coated 81 MG Tablet PO SCH (08:57)
[2016-07-19] MEDS: Furosemide 40 MG TABLET PO SCH (08:57)
[2016-07-19] MEDS: Budesonide/Formoterol 160/4.5 MDI IH SCH ×2 (10:31→19:57)
[2016-07-19] MEDS ORDERED: D5% in Water 1,000 ML IV PRN (12:06)
[2016-07-19] MEDS ORDERED: *HR* Dextrose 50 % in Water (Syg) 50 ML SYRINGE IVP PRN (12:06)
[2016-07-19] MEDS ORDERED: Dextrose Gel 15 GM PO PRN ×2 (12:06)
--- NOTE | 2016-07-19 14:52 | Internal Med Progress Note ---
Date of Encounter: 07/19/16 Time of Encounter: 14:50 - Assessment and plan (1) Acute and chronic respiratory failure with hypoxia Current Visit: Yes Status: Acute Assessment and plan: Patient is in no acute respiratory distress now. We will continue antibiotic, steroid, and the bronchodilator. Oxygen therapy. Continuous oximetry monitoring. (2) DVT (deep venous thrombosis) Current Visit: Yes Status: Acute Assessment and plan: Duplex shows left arm DVT, will start on elliquis, patient agreeable. DVT is possibly provoked by the midline, was removed. Qualifiers: DVT location: upper extremity Affected thrombotic vein of extremity: other upper extremity vein Laterality: left Chronicity: acute Qualified Code(s) : I82.622 - Acute embolism and thrombosis of deep veins of left upper extremity (3) Healthcare-associated pneumonia Current Visit: Yes Status: Acute Assessment and plan: Patient has persistent pneumonia. Etiology is undetermined. Pulmonology is on case and had bronchoscope done. We will continue antibiotic treatment. Follow-up BAL fluid cx, will de- escalate antibiotics once cx available. Patient is at high risk because he is on vancomycin, which needs close monitoring (4) Coronary artery disease Current Visit: No Status: Chronic Assessment and plan: Stable, continue home medication Qualifiers: Coronary Disease-Associated Artery/Lesion type: [place] artery [place] vs. transplanted heart: [place] heart Associated angina: without angina Qualified Code(s): I25.10 - Atherosclerotic heart disease of [place] coronary artery without angina pectoris (5) Hypertension Current Visit: No Status: Chronic Assessment and plan: Stable, continue home medication Qualifiers: Hypertension type: essential hypertension Qualified Code(s): I10 - Essential (primary) hypertension (6) Small cell lung cancer Current Visit: No Status: Chronic Assessment and plan: Patient had chemotherapy and radiation therapy 5 years ago. Qualifiers: Laterality: left Qualified Code(s): C34.92 - Malignant neoplasm of unspecified part of left bronchus or lung - Time Spent With Patient 25 - 35 minutes - Subjective Interval history: Seen at the bedside today, appears a little dyspneic, however denies any chest pain. Reports that he feels better. Saturating 94-95% on 4 L of nasal cannula Complaints of bilateral upper limb swelling. Started on heparin drip last night given DVT of the left forearm. - Constitutional Vitals: Temp Pulse Resp BP Pulse Ox 97.5 F L 88 18 147/87 95 07/19/16 10:48 07/19/16 10:48 07/19/16 10:48 07/19/16 10:48 07/19/16 10:48 General appearance: Present: cooperative, A&O X 3, pleasant, no acute distress, answers questions appropriately Exam: General appearance: Present: cooperative, A&O X 3, pleasant, no acute distress, answers questions appropriately - Head Head exam: Present: atraumatic, normocephalic - Eye Eye exam: Present: PERRL, conjuntiva pink, sclera anicteric Pupils: Present: PERRL - Neck Neck exam general surgery: Present: supple, trachea midline. Absent: lymphadenopathy - Respiratory Respiratory exam: Present: CTAB, wheezes (Scattered wheezes bilaterally). Absent: accessory muscle use, rales, rhonchi - Cardiovascular Cardiovascular exam: Present: RRR, +S1, +S2. Absent: diastolic murmur, gallop, rubs, systolic murmur - GI/Abdominal GI/Abdominal exam: Present: normal bowel sounds, soft, no peritoneal signs. Absent: distended, tenderness - Extremities Exam Extremities exam: Present: warm, radial pulses palpable and symetrical. Absent : calf tenderness, cyanotic, pedal edema - Neurological Exam Neurological exam: Present: CN II-XII intact, oriented X3, no focal deficits. Absent: pronater drift, facial droop, speech deficit - Skin Skin exam: Present: dry, intact Internal Medicine: Result - Labs CBC & Chem 7: 07/19/16 06:36 07/19/16 06:36 Labs: Short CBC 07/19/16 Range/Units 06:36 WBC 13.0 H (4.3-11.1) K/mcL Hgb 10.5 L (12.9-16.9) g/dL Hct 31.8 L (37.5-50.1) % Plt Count 345 (140-400) K/mcL Neutrophils # 12.0 H (1.6-8.9) K/mcL BMP 07/19/16 06:36 Sodium 135 L Potassium 4.2 Chloride 97 L Carbon Dioxide 29 BUN 23 Creatinine 0.77 Glucose 213 H Calcium 8.8 - ABG Interpretation ABG results: PT/INR, D-dimer PT 15.2 Seconds (9.4-12.1) H 07/17/16 17:15 Consult Discharge Plan - Plan Referrals: Jodi Leonard CNP [Advanced Practice Nurse] - 07/26/16 1:00 pm Prescriptions: Apixaban [Eliquis] 10 mg PO BID 30 Days
[2016-07-19] MEDS: Tiotropium 18 MCG inhalation IH SCH (14:53)
[2016-07-19] MEDS: APIXABAN 5 MG TABLET PO SCH (17:10)
[2016-07-19] MEDS: Insulin LISPRO 300 UNITS/3 ML VIAL SQ SCH ×2 (17:11→22:14)
[2016-07-20] MEDS: Piperacillin/Tazobactam 3.375 GM in D5% in Water (Mini-Bag+) 100 ML IVPB SCH ×3 (01:05→15:13)
[2016-07-20] MEDS: Furosemide 40 MG TABLET PO SCH (07:45)
[2016-07-20] MEDS: Diltiazem CD (24hr) 120 MG CAPSULE PO SCH (07:45)
[2016-07-20] MEDS: Aspirin Enteric Coated 81 MG Tablet PO SCH (07:45)
[2016-07-20] MEDS: levoFLOXacin 750 MG TABLET PO SCH (07:45)
[2016-07-20] MEDS: Tiotropium 18 MCG inhalation IH SCH (08:26)
[2016-07-20] MEDS: Budesonide/Formoterol 160/4.5 MDI IH SCH ×2 (08:26→21:38)
[2016-07-20 08:46] LABS: Basophils # 0.1 K/mcL (0.0-0.2); Basophils % 0.4 %; Hematocrit 35.8 % (37.5-50.1); Hemoglobin 11.8 g/dL (12.9-16.9); Immature Granulocytes % 4.4 % (0-4); Lymphocytes # 0.8 K/mcL (0.6-4.6); Lymphocytes % 5.2 %; Mean Corpuscular Hemoglobin 31.4 pg (28.0-33.3); Mean Corpuscular Volume 95.2 fL (83.0-100.0); Mean Platelet Volume 9.4 fL (9.4-12.4); Monocytes # 1.2 K/mcL (0.0-1.3); Monocytes % 8.3 %; Neutrophils # 11.7 K/mcL (1.6-8.9); Nucleated Red Blood Cells 0.5 /100 WBC (0); Platelet Count 375 K/mcL (140-400); Red Blood Count 3.76 M/mcL (4.19-5.50); Red Cell Distribution Width 13.5 % (11.5-14.5); Segmented Neutrophils % 81.7 %
[2016-07-20 09:01] LABS: BUN/Creatinine Ratio 33 (6-26); Blood Urea Nitrogen 24 mg/dL (8-26); Carbon Dioxide 34 mEq/L (19-29); Chloride 97 mEq/L (98-109); Glucose 107 mg/dL (70-99); Osmolality,Calculated 289 (280-300); Potassium 4.1 mEq/L (3.5-4.5); Sodium 137 mEq/L (136-145); eGFR For African Americans > 60 (> 60); eGFR For Non-African Americans > 60 (> 60)
[2016-07-20] MEDS: APIXABAN 5 MG TABLET PO SCH ×2 (09:54→21:22)
[2016-07-20] MEDS: Insulin LISPRO 300 UNITS/3 ML VIAL SQ SCH ×3 (09:54→21:24)
[2016-07-20] MEDS: MethylPREDNISolone 40 MG/ML VIAL IVP SCH (09:55)
--- NOTE | 2016-07-20 13:02 | Pulmonology Progress Note ---
Date of Encounter: 07/20/16 Time of Encounter: 07:30 Assessment and Plan (1) Pneumonia Current Visit: Yes Status: Acute Patient is feeling better and no evidence of malignant cells in the cytology from bronchosocpy. Patient will need follow up CT chest in about 6 weeks and then follow up as outpatient. Complete 10-14 days Levaquin is recommended. Qualifiers: Pneumonia type: due to unspecified organism Laterality: left Lung location: unspecified part of lung Qualified Code(s): J18.9 - Pneumonia, unspecified organism (2) COPD (chronic obstructive pulmonary disease) Current Visit: Yes Status: Chronic Continue current treatment and follow up as outpatient as previously scheduled Qualifiers: COPD type: unspecified COPD Qualified Code(s): J44.9 - Chronic obstructive pulmonary disease, unspecified Subjective Principal diagnosis: Dyspnea Interval history: Patient is feeling better and can breath better Objective PUL Vital signs: Last Vital Signs Temp 97.5 F L 07/20/16 12:07 Pulse 83 07/20/16 12:07 Resp 16 07/20/16 12:07 BP 136/74 07/20/16 12:07 Pulse Ox 93 L 07/20/16 12:07 General appearance: no acute distress Eyes: nonicteric Neck: supple Effort: normal Auscultation: bilateral: diminished breath sounds Cardiovascular: regular rate and rhythm Gastrointestinal: normoactive bowel sounds normal mental status, non-focal exam mood appropriate Results - Laboratory Findings CBC and BMP: 07/20/16 08:15 07/20/16 08:15 PT/INR, D-dimer PT 15.2 Seconds (9.4-12.1) H 07/17/16 17:15 Abnormal lab findings: Abnormal lab results WBC 14.3 K/mcL (4.3-11.1) H 07/20/16 08:15 RBC 3.76 M/mcL (4.19-5.50) L 07/20/16 08:15 Hgb 11.8 g/dL (12.9-16.9) L 07/20/16 08:15 Hct 35.8 % (37.5-50.1) L 07/20/16 08:15 Immature Gran % 4.4 % (0-4) H 07/20/16 08:15 Neutrophils # 11.7 K/mcL (1.6-8.9) H 07/20/16 08:15 Nucleated RBCs/100 WBC 0.5 /100 WBC (0) H 07/20/16 08:15 PT 15.2 Seconds (9.4-12.1) H 07/17/16 17:15 APTT 23.7 Seconds (26.0-36.0) L D 07/19/16 06:36 Chloride 97 mEq/L (98-109) L 07/20/16 08:15 Carbon Dioxide 34 mEq/L (19-29) H 07/20/16 08:15 BUN/Creatinine Ratio 33 (6-26) H 07/20/16 08:15 Glucose 107 mg/dL (70-99) H 07/20/16 08:15 POC Glucose 108 (58-89) H 07/20/16 12:12 Fluid Appearance Cloudy (Clear) A 07/18/16 10:51 Vancomycin Trough 26.1 mcg/mL (10-20) H* 07/20/16 03:35 - Microbiology Findings Microbiology Findings: Microbiology, Last 48 Hours 07/18/16 18:10 Sputum Culture - Preliminary Sputum 07/18/16 10:51 Acid Fast Stain - Final Left Upper Lobe Lung 07/18/16 10:51 Respiratory Culture - Preliminary Left Upper Lobe Lung Normal upper respiratory tract melo. No apparent pathogens isolated. 07/18/16 10:51 Gram Stain - Final Left Upper Lobe Lung - Clinical Findings Intake & Output: Intake & Output 07/19/16 07/20/16 07/20/16 23:59 07:59 15:59 Intake Total 240 / 240 100 / 100 240 / 240 Output Total 450 / 450 180 / 180 98 / 98 Balance -210 / -210 -80 / -80 142 / 142 Weight 76.6 kg Consult Discharge Plan - Plan Referrals: Jodi Leonard, STATISTICAL SECRETARY [Advanced Practice Nurse] - 07/26/16 1:00 pm Prescriptions: Apixaban [Eliquis] 10 mg PO BID 30 Days
--- NOTE | 2016-07-20 16:02 | Internal Med Progress Note ---
Date of Encounter: 07/20/16 Time of Encounter: 15:59 - Assessment and plan (1) Acute and chronic respiratory failure with hypoxia Current Visit: Yes Status: Acute Assessment and plan: Patient is in no acute respiratory distress now. antibiotics can be de escalated to levofloxacin, will continue the steroid, and the bronchodilator. Oxygen therapy. Continuous oximetry monitoring. (2) DVT (deep venous thrombosis) Current Visit: Yes Status: Acute Assessment and plan: Duplex shows left arm DVT, will start on elliquis, patient agreeable. DVT is possibly provoked by the midline, was removed. Qualifiers: DVT location: upper extremity Affected thrombotic vein of extremity: other upper extremity vein Laterality: left Chronicity: acute Qualified Code(s) : I82.622 - Acute embolism and thrombosis of deep veins of left upper extremity (3) Healthcare-associated pneumonia Current Visit: Yes Status: Acute Assessment and plan: HCAP s/p bronchoscopy , gram stain and cx are negative. negative for malignant cells in cytology, seen by pulmonary, repeat CXR shows resolving pneumonia. mild increase in the leucocytosis however no fever. Patient will need follow up CT chest in about 6 weeks and then follow up as outpatient. Complete 10-14 days Levaquin is recommended as per pulmonary. (4) Coronary artery disease Current Visit: No Status: Chronic Assessment and plan: Stable, continue home medication Qualifiers: Coronary Disease-Associated Artery/Lesion type: [place] artery [place] vs. transplanted heart: [place] heart Associated angina: without angina Qualified Code(s): I25.10 - Atherosclerotic heart disease of [place] coronary artery without angina pectoris (5) Hypertension Current Visit: No Status: Chronic Assessment and plan: Stable, continue home medication Qualifiers: Hypertension type: essential hypertension Qualified Code(s): I10 - Essential (primary) hypertension (6) Small cell lung cancer Current Visit: No Status: Chronic Assessment and plan: Patient had chemotherapy and radiation therapy 5 years ago. Qualifiers: Laterality: left Qualified Code(s): C34.92 - Malignant neoplasm of unspecified part of left bronchus or lung - Time Spent With Patient 25 - 35 minutes - Subjective Interval history: Seen at the bedside today, appears better , in no acute distress. however denies any chest pain. Reports that he feels better. Saturating 94-95 % on 4 L of nasal cannula Complaints of bilateral upper limb swelling. has DVT left upper arm ,started on elliquis. PT/OT recommended SNF , so will consult social work for dc to SNF. - Constitutional Vitals: Temp Pulse Resp BP Pulse Ox 97.5 F L 83 16 136/74 93 L 07/20/16 12:07 07/20/16 12:07 07/20/16 12:07 07/20/16 12:07 07/20/16 12:07 General appearance: Present: cooperative, A&O X 3, pleasant, no acute distress, answers questions appropriately Exam: neck- supple chest- b.l clear, no added sounds CVS-s1 and s2, no m/r/g abd-soft, non tender, bs are present ext- no edema neuro- no focal defecits, alert and awake,. Internal Medicine: Result - Labs CBC & Chem 7: 07/20/16 08:15 07/20/16 08:15 Labs: Short CBC 07/20/16 Range/Units 08:15 WBC 14.3 H (4.3-11.1) K/mcL Hgb 11.8 L (12.9-16.9) g/dL Hct 35.8 L (37.5-50.1) % Plt Count 375 (140-400) K/mcL Neutrophils # 11.7 H (1.6-8.9) K/mcL BMP 07/20/16 08:15 Sodium 137 Potassium 4.1 Chloride 97 L Carbon Dioxide 34 H BUN 24 Creatinine 0.72 Glucose 107 H Calcium 9.0 - ABG Interpretation ABG results: PT/INR, D-dimer PT 15.2 Seconds (9.4-12.1) H 07/17/16 17:15 - Impressions Impressions Chest X-Ray 07/20/16 11:58 IMPRESSION: Improving but persistent consolidation and airspace disease of the left lung suggesting resolving pneumonia. D/ / Eliazar Gaitan MD / Eliazar Gaitan MD Interpreting Provider: Eliazar Gaitan MD Consult Discharge Plan - Plan Referrals: Jodi Leonard, BLACKJACK DEALER [Advanced Practice Nurse] - 07/26/16 1:00 pm Prescriptions: Apixaban [Eliquis] 10 mg PO BID 30 Days
[2016-07-20] MEDS: Albuterol 2.5 MG/3 ML NEBULIZER IH PRN (21:42)
[2016-07-21] MEDS: APIXABAN 5 MG TABLET PO SCH (06:50)
[2016-07-21] MEDS: Insulin LISPRO 300 UNITS/3 ML VIAL SQ SCH ×2 (08:02→08:03)
[2016-07-21] MEDS: levoFLOXacin 750 MG TABLET PO SCH (08:04)
[2016-07-21] MEDS: Furosemide 40 MG TABLET PO SCH (08:04)
[2016-07-21] MEDS: Diltiazem CD (24hr) 120 MG CAPSULE PO SCH (08:04)
[2016-07-21] MEDS: Aspirin Enteric Coated 81 MG Tablet PO SCH (08:04)
[2016-07-21] MEDS: MethylPREDNISolone 40 MG/ML VIAL IVP SCH (08:04)
--- NOTE | 2016-07-21 08:06 | Discharge Summary ---
Date of Encounter: 07/21/16 Time of Encounter: 07:58 - Discharge Diagnosis (1) Acute and chronic respiratory failure with hypoxia Priority: Primary Status: Acute (2) DVT (deep venous thrombosis) Priority: Primary Status: Acute Qualifiers: DVT location: upper extremity Affected thrombotic vein of extremity: other upper extremity vein Laterality: left Chronicity: acute Qualified Code(s) : I82.622 - Acute embolism and thrombosis of deep veins of left upper extremity (3) Healthcare-associated pneumonia Priority: Primary Status: Acute (4) Coronary artery disease Priority: Secondary Status: Chronic Qualifiers: Coronary Disease-Associated Artery/Lesion type: [place] artery [place] vs. transplanted heart: [place] heart Associated angina: without angina Qualified Code(s): I25.10 - Atherosclerotic heart disease of [place] coronary artery without angina pectoris (5) Hypertension Priority: Secondary Status: Chronic Qualifiers: Hypertension type: essential hypertension Qualified Code(s): I10 - Essential (primary) hypertension (6) Small cell lung cancer Priority: Secondary Status: Chronic Qualifiers: Laterality: left Qualified Code(s): C34.92 - Malignant neoplasm of unspecified part of left bronchus or lung - Discharge Medications Prescriptions: Apixaban [Eliquis] 10 mg PO Q12H #10 tablet Apixaban [Eliquis] 5 mg PO Q12H #60 tablet Atorvastatin [Lipitor] 40 mg PO HS #30 tablet Levofloxacin 750 mg PO DAILY #9 tablet PredniSONE 10 mg PO DAILY #21 tablet Home Medications: Albuterol Neb [Proventil Neb] 2.5 mg IH QID 02/20/15 [History] Aspirin Enteric Coated [Aspirin EC] 81 mg PO DAILY 02/20/15 [History] Atorvastatin Calcium [Lipitor] 20 mg PO DAILY 02/20/15 [History] Diltiazem HCl [Cardizem] 120 mg PO DAILY 02/20/15 [History] Escitalopram [Lexapro] 20 mg PO DAILY 02/20/15 [History] Furosemide [Lasix] 40 mg PO DAILY 02/20/15 [History] Nitroglycerin 0.4 mg SL PRN PRN 02/20/15 [History] Oxygen 3 l NS CONT 02/20/15 [History] Potassium Chloride 20 meq PO BID 02/20/15 [History] Tiotropium [Spiriva] 18 mcg IH DAILY 02/20/15 [History] Ascorbic Acid [Vitamin C] 2,000 mg PO DAILY 03/31/16 [History] Echinacea 250 mg PO 5XW 03/31/16 [History] Multivitamin [Multi-Day Vitamins] 1 tab PO DAILY 06/17/16 [History] Acetaminophen [Acetaminophen ER] 650 mg PO QID PRN 07/13/16 [History] Ondansetron HCl [Zofran] 4 mg PO Q4H PRN 07/13/16 [History] Budesonide/Formoterol 160/4.5 [Symbicort 160/4.5] 2 puff IH BID 07/16/16 [ History] GuaiFENesin Liq [Robitussin Liq] 200 mg PO DAILY 07/16/16 [History] Ipratropium/Albuterol Neb [Duoneb] 3 ml IH Q6HR 07/16/16 [History] Lactose-Reduced Food [Ensure Original] 1 bottle PO TID 07/16/16 [History] Apixaban [Eliquis] 5 mg PO Q12H #60 tablet 07/21/16 [Rx] Apixaban [Eliquis] 10 mg PO Q12H #10 tablet 07/21/16 [Rx] Atorvastatin [Lipitor] 40 mg PO HS #30 tablet 07/21/16 [Rx] Levofloxacin 750 mg PO DAILY #9 tablet 07/21/16 [Rx] PredniSONE 10 mg PO DAILY #21 tablet 07/21/16 [Rx] Allergies/Adverse Reactions: Allergies cisplatin Adverse Reaction (Severe, Verified 03/31/16 13:41) neurological changes Date of admission: 07/16/16 18:29 Primary care physician: Jarrett Macdonald DO Consults: 07/18/16 08:58 PT [Consult to Physical Therapy] [CONS] Routine Comment: Evaluate, develop and implement POC 07/18/16 08:59 OT [Consult to Occupational Therapy] [CONS] Routine Comment: Evaluate, develop and implement POC 07/18/16 09:57 Consult to Farm Mechanic [CONS] Stat Reason for SW Consult: Pt need group home anticoagulation. Check insurance coverage for xarelto 07/18/16 14:58 Consult to Speech Therapy [CONS] Stat Comment: Evaluate, develop and implement POC Reason for Consult: Swallow evaluation Call Completed: No Discharging clinician: Nakita Blankenship Anticipated date of discharge: 07/21/16 - Patient Status Disposition: Transfer SNF Condition: Fair Functional capacity at discharge: uses cane/walker Overall status at discharge: patient is progressing back to baseline - Discharge Instructions Instructions: Prednisone (By mouth), Atorvastatin (By mouth), Levofloxacin (By mouth), Apixaban (By mouth), Pneumonia (DC) Follow Up With: Jodi Leonard, MONOTYPE CASTER [Advanced Practice Nurse] - 07/26/16 1:00 pm - Diet and Activity Activity: as per physical therapy Diet: advance to your usual diet Interval History: Mr. Beal is a 66 year old male with medical history of small cell lung cancer, COPD, coronary disease, hypertension, and hyperlipidemia presents to [place] from a subacute facility with concerns of worsening shortness of breath. He was diagnosed with small cell lung cancer earlier this year and has received 2 rounds of chemotherapy radiation. He was diagnosed with community acquired pneumonia on 06/17/16 and has been receiving treatment for this at [facility]. He had been discharged on 06/21/16 with a prescription for Levaquin. He has not improved and on 07/07/[address] examination that showed worsening pneumonia. He will be receiving Levaquin and imipenem at [facility], but has continued not having improvement and was found to have greater oxygen need at [facility] and was sent to the hospital. He normally uses 3 L oxygen, but has been requiring 6 L in order to maintain adequate oxygen saturation. He reports that since being diagnosed with pneumonia and he has had increased shortness of breath that he states has been getting worse, though he does not state that is much worse today even though he has been using increased oxygen. He also reports since being diagnosed with pneumonia he has been continually coughing up orange sputum mass continue to do so, he denies hemoptysis. He reports subjective fever, diaphoresis with fever, and occasional lightheadedness. He denies chest pain, denies pain with inspiration , denies pain with coughing. Denies abdominal pain, denies nausea, denies vomiting. He states he has had no change in vision. Reports weakness. Hospital course: HE was admitted for acute respiratory failure .This is multifactorial including severe underlying COPD with acute infiltrate noted on CT imaging. Review of his imaging shows a diffuse progressive consolidative process primary in the lingula but with extension to the adjacent sections of the left upper lobe and superior segment of the left lower lobe. pulmonary was consulted and was recommended bronchoscopy. HE was started ON iV antibiotics. bronchodilator regimen and steroids was also started for COPD exacerbation. Patient impprved and no evidence of malignant cells in the cytology from bronchosocpy. gram stain and cx from BAL was negative. Patient will need follow up CT chest in about 6 weeks and then follow up as outpatient as per pulmonary recommnedtaion. Complete 10-14 days Levaquin, he will be discharged on by mouth Levaquin. He is being discharged in stable condition to rehabilitation, PT OT recommended ECF at discharge Time spent discussing smoking cessation with patient: more than 10 minutes - Time Spent with Patient Total time spent providing and/or coordinating discharge services: Greater than 30 minutes - Constitutional Vitals: Temp Pulse Resp BP Pulse Ox 96.7 F L 88 18 118/77 96 07/21/16 06:58 07/21/16 06:58 07/21/16 06:58 07/21/16 06:58 07/21/16 06:58 General appearance: Present: cooperative, A&O X 3, pleasant, no acute distress, answers questions appropriately Exam: General appearance: no acute distress Eyes: nonicteric Neck: supple Effort: normal Auscultation: bilateral:occasional wheezing, no creptns Cardiovascular: regular rate and rhythm Gastrointestinal: normoactive bowel sounds normal mental status, non-focal exam mood appropriate
--- NOTE | 2016-07-21 08:08 | Physician Discharge Referral ---
ExtendedCare Referral Info Transfer To: F Provider in Charge: aleksandra andrew Institutional Level of Care: Skilled - Diagnosis (1) Acute and chronic respiratory failure with hypoxia Status: Acute (2) DVT (deep venous thrombosis) Status: Acute (3) Healthcare-associated pneumonia Status: Acute (4) Coronary artery disease Status: Chronic (5) Hypertension Status: Chronic (6) Small cell lung cancer Status: Chronic - Transfer Medications Prescriptions: Apixaban [Eliquis] 10 mg PO Q12H #10 tablet Apixaban [Eliquis] 5 mg PO Q12H #60 tablet Atorvastatin [Lipitor] 40 mg PO HS #30 tablet Levofloxacin 750 mg PO DAILY #9 tablet PredniSONE 10 mg PO DAILY #21 tablet Home Medications: Albuterol Neb [Proventil Neb] 2.5 mg IH QID 02/20/15 [History] Aspirin Enteric Coated [Aspirin EC] 81 mg PO DAILY 02/20/15 [History] Atorvastatin Calcium [Lipitor] 20 mg PO DAILY 02/20/15 [History] Diltiazem HCl [Cardizem] 120 mg PO DAILY 02/20/15 [History] Escitalopram [Lexapro] 20 mg PO DAILY 02/20/15 [History] Furosemide [Lasix] 40 mg PO DAILY 02/20/15 [History] Nitroglycerin 0.4 mg SL PRN PRN 02/20/15 [History] Oxygen 3 l NS CONT 02/20/15 [History] Potassium Chloride 20 meq PO BID 02/20/15 [History] Tiotropium [Spiriva] 18 mcg IH DAILY 02/20/15 [History] Ascorbic Acid [Vitamin C] 2,000 mg PO DAILY 03/31/16 [History] Echinacea 250 mg PO 5XW 03/31/16 [History] Multivitamin [Multi-Day Vitamins] 1 tab PO DAILY 06/17/16 [History] Acetaminophen [Acetaminophen ER] 650 mg PO QID PRN 07/13/16 [History] Ondansetron HCl [Zofran] 4 mg PO Q4H PRN 07/13/16 [History] Budesonide/Formoterol 160/4.5 [Symbicort 160/4.5] 2 puff IH BID 07/16/16 [ History] GuaiFENesin Liq [Robitussin Liq] 200 mg PO DAILY 07/16/16 [History] Ipratropium/Albuterol Neb [Duoneb] 3 ml IH Q6HR 07/16/16 [History] Lactose-Reduced Food [Ensure Original] 1 bottle PO TID 07/16/16 [History] Apixaban [Eliquis] 5 mg PO Q12H #60 tablet 07/21/16 [Rx] Apixaban [Eliquis] 10 mg PO Q12H #10 tablet 07/21/16 [Rx] Atorvastatin [Lipitor] 40 mg PO HS #30 tablet 07/21/16 [Rx] Levofloxacin 750 mg PO DAILY #9 tablet 07/21/16 [Rx] PredniSONE 10 mg PO DAILY #21 tablet 07/21/16 [Rx] Allergies/Adverse Reactions: Allergies cisplatin Adverse Reaction (Severe, Verified 03/31/16 13:41) neurological changes - Respiratory Orders Oxygen / L per min (4l) Smoking Cessation: Smoking cessation has been advised. For more information, call the [employer] Quit Line at 0-359-MRMA-NOW. - Advance Directives Code Status: Full Code - Mobility Orders Chair, Ambulate - Rehabiliation Orders Rehab Potential: Fair Rehab Orders: Evaluation for Physical Therapy, Evaluation for Occupational Therapy - Diet Orders Mechanical Soft CERTIFICATION: I certify that the transfer of the above named patient to an Extended Care Facility is necessary for the continuing treatment of the diagnosis listed. The above information is true and accurate reflection of patient's current condition. Confidential - Redisclosure prohibited without a patient's written consent.
[2016-07-21] MEDS: Budesonide/Formoterol 160/4.5 MDI IH SCH (10:50)
[2016-07-21] MEDS: Tiotropium 18 MCG inhalation IH SCH (10:51)
[2016-07-21] MEDS: Albuterol 2.5 MG/3 ML NEBULIZER IH PRN (10:52)
[2016-07-21 11:05] VITALS: BP 118/77
[2016-07-26] MEDS ORDERED: APIXABAN 5 MG TABLET PO SCH (06:00)
== END 2016-07-21 11:28 | DRG 190 ==
LOC: EMEROO 10:20 → 2ANU 10:20 → SUATTDRO 18:29
PROVIDERS: ADMIT Internal Medicine; ATTEND Internal Medicine